=== PATIENT | male | born 1975 | race Two or more races ===

== ENCOUNTER 2016-11-15 16:56 | Outpatient (CLI) | payer OTHER ==
--- NOTE | 2016-11-16 09:42 | Ultrasound Report ---
LIVER ULTRASOUND: 11/15/2016 CLINICAL INDICATION: Elevated LFTs. TECHNIQUE: Real-time scanning was performed with entry level sales representative static images obtained. FINDINGS: The liver is enlarged and echogenic, measuring 20 cm. No focal parenchymal lesion or intr ahepatic biliary dilatation is appreciated. The common bile duct measures 3 mm. No free fluid is se en. IMPRESSION: ECHOGENIC LIVER, COMPATIBLE WITH FATTY INFILTRATION. JOB #: [id number] EXT JOB #:[id number]
== END 2016-11-15 16:57 | disposition home or self-care (01) ==
LOC: DI 16:56
PROVIDERS: ATTEND Family Medicine
DX: R79.89 Other specified abnormal findings of blood chemistry (principal)
CPT/HCPCS: 76705